=== PATIENT | female | born 1960 | race Two or more races ===

== ENCOUNTER 2023-10-10 12:06 | Inpatient (IN) | payer OTHER, MEDICAID ==
[~2023-10-10] VITALS: Ht 134.6 cm; Wt 123.6 kg
[2023-10-10] MEDS ORDERED: FUROSEMIDE 40 MG/4 ML VIAL IV ONE (12:30)
[2023-10-10] MEDS ORDERED: PIPERACILLIN-TAZOB 3.375GM 100 ML IV ONE (12:30)
[2023-10-10] MEDS ORDERED: ALBUTEROL SULF 2.5 MG/0.5ML(0.5%) NEB SOLN NEB ONE (12:30)
[2023-10-10] MEDS ORDERED: ACETAMINOPHEN 500 MG TAB PO ONE (12:30)
[2023-10-10] MEDS ORDERED: methylPREDNISolone SOD SUCC 125 MG/2 ML VL IV ONE (12:30)
[2023-10-10] MEDS ORDERED: IPRATROPIUM BROM 0.5 MG/2.5ML INH SOL NEB ONE (12:30)
[2023-10-10 13:07] VITALS: PULSE 115; RESP 28; O2SAT 90
[2023-10-10 13:41] LABS: Urine Bacteria NONE SEEN /hpf (None Seen); Urine Blood 3+ /uL (Negative); Urine Clarity HAZY (Clear); Urine Color Orange (Yellow); Urine Hyaline Cast FEW /lpf (0 - 2); Urine Mucus FEW (None Seen); Urine Protein, UAD 2+ (Negative); Urine Specific Gravity 1.037 (1.001-1.035); Urine WBC 5 /hpf (0 - 5); Urine pH 5.5 (5.0-8.0)
[2023-10-10 13:42] LABS: Basophils # (auto) 0 10 ^3/uL (0-0.2); Basophils % (auto) 0.1 % (0.0-2.0); Eosinophils # (auto) 0.1 10 ^3/uL (0-0.8); Eosinophils % (auto) 0.4 % (0.0-7.0); Hematocrit 35.3 % (36.0-46.0); Hemoglobin 11.6 g/dL (12.2-16.2); Lymphocytes # (auto) 1.1 10 ^3/uL (0.4-5.4); Lymphocytes % (auto) 6.3 % (10.0-50.0); Mean Corpuscular Hgb Conc. 32.9 g/dL (32.0-36.0); Mean Corpuscular Volume 87.9 fL (80.0-100.0); Monocytes % (auto) 11.5 % (0.0-12.0); Neutrophils # (auto) 14.3 10 ^3/uL (1.6-8.6); Neutrophils % (auto) 81.7 % (37.0-80.0); Nucleated Red Blood Cells % 0.1 %; Red Blood Cells 4.01 10^6/uL (4.0-5.20); Red Cell Distribution Width 14.6 % (11.8-14.3); White Blood Cell 17.5 10^3/uL (4.4-10.8)
[2023-10-10 13:56] LABS: INR 1.07 (0.9-1.15); Partial Thromboplastin Time 29.2 SEC (24.5-34.5); Prothrombin Time 11.2 sec (9.3-11.8)
[2023-10-10 13:57] LABS: Alanine Aminotransferase 47 U/L (7-40); Albumin 3.8 g/dL (3.2-4.8); Alkaline Phosphatase 212 U/L (46-116); Anion Gap 5 (5-15); Aspartate Aminotransferase 46 U/L (13-40); BUN/Creatinine Ratio 16.7 (10.0-20.0); Blood Urea Nitrogen 9 mg/dL (9-23); Calcium 8.8 mg/dL (8.7-10.4); Carbon Dioxide 31 mmol/L (20-30); Chloride 96 mmol/L (98-107); Glucose 115 mg/dL (74-106); Magnesium 1.8 mg/dL (1.6-2.6); Potassium 4.6 mmol/L (3.5-5.1); Sodium 132 mmol/L (136-145)
[2023-10-10 13:58] LABS: Bilirubin, Total 1.6 mg/dL (0.2-1.0)
[2023-10-10] MEDS ORDERED: SODIUM CHLORIDE 0.9% 1,000 ML IV ONE (14:00)
[2023-10-10 14:34] LABS: Rapid Influenza A Positive (Negative); Rapid Influenza B Negative (Negative)
[2023-10-10] MEDS ORDERED: ACETAMINOPHEN 325 MG TAB PO PRN (14:45)
[2023-10-10] MEDS ORDERED: MORPHINE SULFATE INJ 2 MG/ml SYRG IV PRN ×2 (14:45)
[2023-10-10] MEDS ORDERED: NITROGLYCERIN 0.4 MG SL TAB SL PRN (14:45)
[2023-10-10] MEDS ORDERED: ONDANSETRON HCL 4 MG/2 ML VIAL IV PRN (14:45)
[2023-10-10 14:58] LABS: COVID19 ANTIGEN SOFIA FIA NEGATIVE (NEGATIVE)
[2023-10-10] MEDS ORDERED: ALBUTEROL MEDNEB 2.5 mg/3ml NEB NEB PRN (15:30)
[2023-10-10 15:44] VITALS: BP 125/63; PULSE 96; RESP 18; TEMP 99.5; O2SAT 94
[2023-10-10] MEDS: SODIUM CHLORIDE 0.9% 1,000 ML IV SCH ×2 (15:47→22:49)
[2023-10-10] MEDS: ENOXAPARIN SOD 40 MG/0.4 ML SYRINGE SC SCH ×2 (15:48→21:52)
[2023-10-10 15:53] VITALS: O2SAT 94
[2023-10-10] MEDS ORDERED: IOHEXOL 350 MG/ML 100ML IJ ONE (17:01)
[2023-10-10 17:18] LABS: Base Excess 5.6 mmol/L (-2.0-2.0)
[2023-10-10 18:25] VITALS: O2SAT 91
[2023-10-10 19:30] VITALS: PULSE 100; RESP 18; O2SAT 94
[2023-10-10] MEDS ORDERED: POTASSIUM CHL 20 Meq TABLET PO ONE (21:45)
[2023-10-10] MEDS ORDERED: FUROSEMIDE 20 MG/2 ML VIAL IV ONE (21:45)
[2023-10-10] MEDS: METOPROLOL TARTRATE 25 MG TAB PO SCH (21:51)
[2023-10-10] MEDS: OSELTAMIVIR 75 MG CAP PO SCH (21:51)
[2023-10-10] MEDS: CEFEPIME 1GM/ 50ML 50 ML IV SCH (21:53)
[2023-10-11] VITALS (8 sets, daily range): BP systolic 121–134; BP diastolic 57–81; PULSE 82–104; RESP 14–19; TEMP 97.5–98.8; O2SAT 95–100
[2023-10-11] MEDS: guaiFENesin 200 MG/10 ML UD GT PRN ×2 (03:47→21:00)
[2023-10-11] MEDS: CEFEPIME 1GM/ 50ML 50 ML IV SCH ×3 (05:37→21:03)
[2023-10-11 05:59] LABS: Basophils # (auto) 0 10 ^3/uL (0-0.2); Eosinophils # (auto) 0 10 ^3/uL (0-0.8); Hematocrit 31.1 % (36.0-46.0); Hemoglobin 10.3 g/dL (12.2-16.2); Lymphocytes # (auto) 0.9 10 ^3/uL (0.4-5.4); Lymphocytes % (auto) 6.7 % (10.0-50.0); Mean Corpuscular Hemoglobin 28.7 pg (28.0-32.0); Mean Corpuscular Hgb Conc. 33.1 g/dL (32.0-36.0); Mean Corpuscular Volume 86.8 fL (80.0-100.0); Monocytes # (auto) 1.1 10 ^3/uL (0-1.3); Monocytes % (auto) 8.1 % (0.0-12.0); Neutrophils % (auto) 85.2 % (37.0-80.0); Red Blood Cells 3.58 10^6/uL (4.0-5.20); Red Cell Distribution Width 14.5 % (11.8-14.3); White Blood Cell 14.1 10^3/uL (4.4-10.8)
[2023-10-11 06:16] LABS: Alanine Aminotransferase 35 U/L (7-40); Alkaline Phosphatase 183 U/L (46-116); Anion Gap 6 (5-15); Aspartate Aminotransferase 31 U/L (13-40); BUN/Creatinine Ratio 17.9 (10.0-20.0); Blood Urea Nitrogen 10 mg/dL (9-23); Calcium 9.3 mg/dL (8.7-10.4); Carbon Dioxide 34 mmol/L (20-30); Chloride 96 mmol/L (98-107); Glucose 123 mg/dL (74-106); Potassium 3.6 mmol/L (3.5-5.1); Sodium 136 mmol/L (136-145)
[2023-10-11 06:17] LABS: Albumin 3.9 g/dL (3.2-4.8); Bilirubin, Total 0.7 mg/dL (0.2-1.0); Total Protein 6.6 g/dL (5.7-8.2)
[2023-10-11] MEDS ORDERED: ERGOCALCIFEROL 50,000 UNIT(1.25MG) CAP PO SCH (08:15)
[2023-10-11 08:32] LABS: % Iron Saturation 9.9 % (15-50)
[2023-10-11] MEDS: OSELTAMIVIR 75 MG CAP PO SCH ×2 (09:49→21:01)
[2023-10-11] MEDS: ENOXAPARIN SOD 40 MG/0.4 ML SYRINGE SC SCH ×2 (09:51→21:02)
[2023-10-11] MEDS: METOPROLOL TARTRATE 25 MG TAB PO SCH ×2 (09:51→21:01)
[2023-10-11] MEDS ORDERED: ENOXAPARIN SOD 40 MG/0.4 ML SYRINGE SC SCH (10:00)
[2023-10-11] MEDS ORDERED: METO25TA5 PO (11:35)
[2023-10-11] MEDS ORDERED: AMIT25TA20 PO (11:35)
[2023-10-11] MEDS ORDERED: BUSP10TA90 PO (11:35)
[2023-10-11] MEDS ORDERED: ALBU2TAB11 NEB (11:35)
[2023-10-11] MEDS ORDERED: ACET-1881 PO (11:35)
[2023-10-11] MEDS ORDERED: DULO20CA PO (11:35)
[2023-10-11] MEDS ORDERED: THIA100T10 GT (11:35)
[2023-10-11] MEDS ORDERED: POTA10TA51 PO (11:35)
[2023-10-11] MEDS ORDERED: ROSU5TAB5 PO (11:35)
[2023-10-11] MEDS ORDERED: BENZ100C97 PO (11:35)
[2023-10-11] MEDS ORDERED: GABA-1308 PO (11:35)
[2023-10-11] MEDS ORDERED: METH-1182 PO (11:35)
[2023-10-11] MEDS ORDERED: PANT1INJ3 IV (11:35)
[2023-10-11] MEDS ORDERED: OXY5T PO (11:35)
[2023-10-11] MEDS: DOXYCYCLINE 100 MG TAB/CAP PO SCH (21:01)
[2023-10-11] MEDS: HYDROcodone-ACET 5/325MG TAB PO PRN (21:02)
[2023-10-12] VITALS (9 sets, daily range): BP systolic 120–135; BP diastolic 64–78; PULSE 69–105; RESP 18–21; TEMP 97.7–98.6; O2SAT 96–100
[2023-10-12] MEDS: CEFEPIME 1GM/ 50ML 50 ML IV SCH ×3 (05:39→21:52)
[2023-10-12 06:45] LABS: Anion Gap 5 (5-15); Carbon Dioxide 34 mmol/L (20-30); Chloride 99 mmol/L (98-107); Potassium 3.6 mmol/L (3.5-5.1); Sodium 138 mmol/L (136-145)
[2023-10-12 06:46] LABS: Calcium 9.5 mg/dL (8.5-10.1)
[2023-10-12 06:50] LABS: Glucose 85 mg/dL (74-106)
[2023-10-12 06:51] LABS: BUN/Creatinine Ratio 27.8 (10.0-20.0); Blood Urea Nitrogen 15 mg/dL (9-23)
[2023-10-12 07:13] LABS: Basophils # (auto) 0 10 ^3/uL (0-0.2); Eosinophils # (auto) 0.1 10 ^3/uL (0-0.8); Eosinophils % (auto) 1.3 % (0.0-7.0); Hemoglobin 9.6 g/dL (12.2-16.2); Lymphocytes # (auto) 1.5 10 ^3/uL (0.4-5.4); Lymphocytes % (auto) 17.2 % (10.0-50.0); Mean Corpuscular Hemoglobin 29.3 pg (28.0-32.0); Mean Corpuscular Hgb Conc. 33.2 g/dL (32.0-36.0); Mean Corpuscular Volume 88.1 fL (80.0-100.0); Monocytes # (auto) 0.9 10 ^3/uL (0-1.3); Neutrophils # (auto) 6.2 10 ^3/uL (1.6-8.6); Neutrophils % (auto) 71.5 % (37.0-80.0); Red Blood Cells 3.29 10^6/uL (4.0-5.20); Red Cell Distribution Width 14.9 % (11.8-14.3); White Blood Cell 8.7 10^3/uL (4.4-10.8)
[2023-10-12] MEDS: DOXYCYCLINE 100 MG TAB/CAP PO SCH ×2 (11:29→21:52)
[2023-10-12] MEDS: METOPROLOL TARTRATE 25 MG TAB PO SCH ×2 (11:29→21:52)
[2023-10-12] MEDS: OSELTAMIVIR 75 MG CAP PO SCH ×2 (11:29→21:52)
[2023-10-12] MEDS: ENOXAPARIN SOD 40 MG/0.4 ML SYRINGE SC SCH ×2 (11:30→21:52)
[2023-10-12] MEDS ORDERED: SODIUM FERR GLUC 125 MG in NS 100 ML IV SCH (12:00)
[2023-10-12] MEDS ORDERED: IRON SUCROSE COMPLEX 200 MG in SODIUM CHL 0.9% 100 ML IV SCH (12:00)
[2023-10-12] MEDS: HYDROcodone-ACET 5/325MG TAB PO PRN ×2 (12:07→20:20)
[2023-10-12] MEDS: guaiFENesin 200 MG/10 ML UD GT PRN (20:19)
== END 2023-10-13 02:43 | disposition short-term general hospital (02) | DRG 871 ==
LOC: EDBD 12:06 → ER 12:06 → TELE 14:45 → TELE-WESTW 10-11 08:23
PROVIDERS: ADMIT Internal Medicine; ATTEND Internal Medicine
DX: A41.89 Other specified sepsis (principal); J18.9 Pneumonia, unspecified organism; J96.01 Acute respiratory failure with hypoxia; J93.9 Pneumothorax, unspecified; E87.1 Hypo-osmolality and hyponatremia; J90 Pleural effusion, not elsewhere classified; J10.1 Influenza due to other identified influenza virus with other respiratory manifestations; I50.9 Heart failure, unspecified; R74.01 Elevation of levels of liver transaminase levels; I10 Essential (primary) hypertension; Z20.822 Contact with and (suspected) exposure to COVID-19; D64.9 Anemia, unspecified; Z85.118 Personal history of other malignant neoplasm of bronchus and lung; Z86.718 Personal history of other venous thrombosis and embolism
CPT/HCPCS: 36415; 36600; 71045; 71275; 76705; 80048; 80053; 81001; 82306; 82607; 82805; 83540; 83550; 83605; 83735; 83880; 84443; 84484; 85025; 85610; 85730; 86850; 86900; 86901; 87040; 87077; 87186; 87426; 87804; 93005; 93306; 94640; G0378; J2543